=== PATIENT | female | born 1985 | race Caucasian/White ===

== ENCOUNTER 2016-11-08 13:42 | Outpatient (CLI) | payer MEDICAID ==
[2017-01-04] MEDS ORDERED: PRENATAL VIT1 TAB PO (11:14)
[2017-01-04] MEDS ORDERED: MOTRIN-DPS800 MG PO (11:15)
[2017-01-04] MEDS ORDERED: OXY IR DPS5 MG PO (11:15)
[2017-01-04] MEDS ORDERED: NIPPLECREAM TP (11:15)
[2017-01-04] MEDS ORDERED: COLACE-DPS100 MG PO (11:15)
[2017-01-04] MEDS ORDERED: IRON325 M1 PO (11:15)
[2017-01-04] MEDS ORDERED: MIRALAX PACKET17 GM PO (11:16)
[2017-01-04] MEDS ORDERED: MILK OF MAGNESI10 ML PO (11:16)
== END 2016-11-08 16:40 | disposition home or self-care (01) ==
LOC: 2LDRP 13:42 → BC 13:42
DX: O47.03 False labor before 37 completed weeks of gestation, third trimester (principal); Z3A.31 31 weeks gestation of pregnancy

== ENCOUNTER 2016-12-17 18:15 | Outpatient (CLI) | payer MEDICAID ==
[2017-01-04] MEDS ORDERED: PRENATAL VIT1 TAB PO (11:14)
[2017-01-04] MEDS ORDERED: NIPPLECREAM TP (11:15)
[2017-01-04] MEDS ORDERED: COLACE-DPS100 MG PO (11:15)
[2017-01-04] MEDS ORDERED: IRON325 M1 PO (11:15)
[2017-01-04] MEDS ORDERED: OXY IR DPS5 MG PO (11:15)
[2017-01-04] MEDS ORDERED: MOTRIN-DPS800 MG PO (11:15)
[2017-01-04] MEDS ORDERED: MILK OF MAGNESI10 ML PO (11:16)
[2017-01-04] MEDS ORDERED: MIRALAX PACKET17 GM PO (11:16)
== END 2016-12-17 21:30 | disposition home or self-care (01) ==
LOC: BC 18:15 → 2LDRP 18:15 → EDSTATUS 18:26 → BC 21:30
DX: O9A.213 Injury, poisoning and certain other consequences of external causes complicating pregnancy, third trimester (principal); Z3A.39 39 weeks gestation of pregnancy; W19.XXXA Unspecified fall, initial encounter

== ENCOUNTER 2017-01-01 22:45 | Inpatient (IN) | payer MEDICAID ==
[~2017-01-01] VITALS: Ht 152.4 cm; Wt 62.1 kg
--- NOTE | ~2017-01-01 | FD ---
ADMIT: 01/02/2017 RM/LOC: 220 [facility] MR#: [id number] 2620 [facility] [address] [place] [id number] LAVERNE PIERRE A [address] [id number] Final Diagnosis SEX: F AGE: 31 : 1985 ADMISSION DATE: 01/02/2017 DISCHARGE DATE: 01/03/2017 FINAL DIAGNOSIS: 1. Status post spontaneous vaginal delivery at term. 2. Hypothyroidism. PROCEDURE: 01/02/2017 spontaneous vaginal delivery with delivery of viable female, 6 pounds 5 ounces, Apgars 9 and 9. Deb Cruz MD/ meredith JOB #: [id number] CC: Deb Cruz MD, Attending Physician Deb Cruz MD, Family Physician
[2017-01-04] MEDS ORDERED: PRENATAL VIT1 TAB PO (11:14)
[2017-01-04] MEDS ORDERED: COLACE-DPS100 MG PO (11:15)
[2017-01-04] MEDS ORDERED: MOTRIN-DPS800 MG PO (11:15)
[2017-01-04] MEDS ORDERED: IRON325 M1 PO (11:15)
[2017-01-04] MEDS ORDERED: OXY IR DPS5 MG PO (11:15)
[2017-01-04] MEDS ORDERED: NIPPLECREAM TP (11:15)
[2017-01-04] MEDS ORDERED: MIRALAX PACKET17 GM PO (11:16)
[2017-01-04] MEDS ORDERED: MILK OF MAGNESI10 ML PO (11:16)
--- NOTE | 2017-02-03 08:42 | OR ---
ADMIT: 01/02/2017 RM/LOC: 220 [facility] MR#: [id number] [address] [facility] [address] [place], [place] [id number] CLAUDINE RHOADESARDLAVERNE Wright [address] [facility] [address] [place] [address] Operative/Delivery Room Report SEX: F AGE: 31 : 1985 SURGERY DATE: 01/02/2017 SURGEON: Andrew John MD PRINCIPAL DIAGNOSES: 1. Term intrauterine . 2. was complicated by hypothyroidism. INDICATION: The patient is a 31-year-old female, 2, para 1-0- 0-1, who presented at 39-1/2 weeks' estimated gestational age in active labor progressed through labor in a satisfactory fashion to complete. ANESTHESIA: Subcu Nubain. ESTIMATED BLOOD LOSS: 250 mL. COMPLICATIONS: None. FINDINGS: Viable female infant, 6 pounds 5 ounces with scores of 9 at 1 and 9 at 5 minutes, delivered in left occiput anterior presentation. DESCRIPTION OF PROCEDURE: When the patient was noted to be complete and pushing, she was prepped and draped in the usual fashion in dorsal lithotomy position. 's head was allowed to deliver over an intact perineum. After restitution of the head, the neck was examined for nuchal cord and none was noted. The anterior followed by the posterior shoulders were delivered followed by expulsion of the remainder of the . Cord was clamped x2, cut, and the was placed on the maternal stomach in the care of nursing staff. Placenta was then delivered after approximately 30 minutes, intact. Uterine cervix was then visualized and noted to be without lacerations or tears. Attention was then turned to the perineum where the patient was noted to have no significant perineal lacerations. The patient tolerated the procedure well, was taken to the recovery room in stable condition. All sponge, instrument, and needle counts were correct. Andrew John MD/ giovanna JOB #: [id number] CC: Deb Cruz, Attending Physician Deb Cruz, Family Physician
--- NOTE | 2017-03-03 09:37 | HP ---
ADMIT: 01/02/2017 RM/LOC: 220 [facility] MR#: [id number] [address] [facility] [address] [place], [place] [address] LAVERNE PIERRE A [address] [facility] [address] [place] [address] Pre-OP History and Physical SEX: F AGE: 31 : 1985 DATE OF SERVICE: PRINCIPAL DIAGNOSIS: Term intrauterine . HISTORY OF PRESENT ILLNESS: The patient is a 31-year-old female, 2, para 1, who presented at 39 and 1/2 weeks estimated gestational age in active labor with complaint of uterine contractions. PREVIOUS MEDICAL HISTORY: The patient's medical history was significant for hypothyroidism. SOCIAL HISTORY: She denies smoking, alcohol, or drug use. FAMILY HISTORY: Significant for diabetes. ALLERGIES: SHE HAS NO KNOWN MEDICAL ALLERGIES. MEDICATIONS: She takes Synthroid 75 mcg daily, hydrocodone, acetaminophen 5/325 one as needed p.r.n. pain. PHYSICAL EXAMINATION: GENERAL: The patient is a well-developed, well- nourished female, alert and oriented, in no apparent distress with normal stream of thought and content of speech. HEART: Regular rate and rhythm without murmurs, rubs, or gallops. LUNGS: Clear to auscultation bilaterally. ABDOMEN: Soft with positive bowel sounds. heart tones on presentation were in the 120s with moderate variability and accelerations present. The patient was having regular uterine contractions. ASSESSMENT: Term intrauterine in active labor. We will admit the patient and anticipate spontaneous vaginal delivery. Andrew John MD/ giovanna JOB #: [id number] CC: Andrew John MD, Attending Physician Deb Cruz MD, Family Physician
== END 2017-01-03 19:40 | disposition home or self-care (01) | DRG 774 ==
LOC: 2LDRP 22:45 → BC 22:45 → 2LDRP 01-02 01:46 → BC 01-05 08:00
PROVIDERS: ADMIT Obstetrics & Gynecology
PROC: 10E0XZZ Delivery of Products of Conception, External Approach (ICD-10-PCS; principal; 2017-01-02)
DX: O99.824 Streptococcus B carrier state complicating childbirth (principal); O72.1 Other immediate postpartum hemorrhage; E03.9 Hypothyroidism, unspecified; O99.284 Endocrine, nutritional and metabolic diseases complicating childbirth; Z3A.39 39 weeks gestation of pregnancy; Z37.0 Single live birth

== ENCOUNTER 2017-01-05 20:43 | Emergency (ER) | payer MEDICAID ==
[~2017-01-05 20:43] MED LIST: COLACE-DPS100 MG PO; IRON325 M1 PO; MILK OF MAGNESI10 ML PO; MIRALAX PACKET17 GM PO; MOTRIN-DPS800 MG PO; NIPPLECREAM TP; OXY IR DPS5 MG PO; PRENATAL VIT1 TAB PO
--- NOTE | 2017-02-02 16:41 | ER ---
ADMIT: 01/05/2017 RM/LOC: ER [facility] MR#: [id number] [address] [facility] [address] [place], [place] [id number] ZAYDA PIERRERUTH Lozano [address] [facility] [address] [place] [address] Emergency Room Report SEX: F AGE: 31 : 1985 DATE: 01/05/2017 SUBJECTIVE: This patient comes to the ER because she is having a hemorrhoid that she has had for one day. She recently had a vaginal delivery 3 days , and she is having quite a bit of pain in her rectum. On physical exam, she has several large thrombosed hemorrhoids that are quite tender. I infiltrated the areas with lidocaine and expressed several large blood clots. I wrote a prescription for Anusol-HC. We will have her follow up with her primary as needed. DIAGNOSIS: Thrombosed hemorrhoids. LIVAN Bravo / Pablo Briggs MD / virgenl JOB #: [id number] CC: Pablo Briggs MD, Attending Physician Deb Cruz MD, Family Physician
== END 2017-01-05 21:42 | disposition home or self-care (01) ==
LOC: ER 20:43
DX: K64.5 Perianal venous thrombosis (principal); Z79.899 Other long term (current) drug therapy

== ENCOUNTER 2017-01-10 08:17 | Day surgery (SDC) | payer MEDICAID ==
[~2017-01-10] VITALS: Ht 162.6 cm; Wt 55.5 kg
--- NOTE | 2017-01-19 19:20 | OR ---
ADMIT: 01/10/2017 RM/LOC: [facility] MR#: [id number] 2620 [facility] [address] [place], [place] [phone] CHOWRA BETANCOURTLAVERNE [address] [facility] [address] [place] [address] Operative/Delivery Room Report SEX: F AGE: 31 : 1985 SURGERY DATE: 01/10/2017 SURGEON: Wilmer Anguiano MD PREOPERATIVE DIAGNOSIS: Grade 4 thrombosed internal external hemorrhoids on the left side, grade 2 on the right. PROCEDURES: Excision of 3 different columns of external internal tissue, mostly involving the left side and one on the right side. ANESTHESIA: Spinal anesthesia with sedation. I did an infiltrate with local anesthetic. INDICATION FOR PROCEDURE: Please see my H and P. SPECIMEN: I did send the specimens. BLOOD LOSS: 10 mL. DESCRIPTION OF PROCEDURE: After the risks, benefits, possible complications, and the alternatives had been explained, and informed consent had been obtained, the patient was taken back to the operating room, underwent spinal anesthesia and sedation. Surgical field was prepped and draped in a sterile manner. She has a thrombosed fairly significant grade 4 left-sided hemorrhoids and then a grade 2 right-sided hemorrhoid. Unfortunately, the external skin is involving most of this external skin around here, and so there was just no way to do anything other than get rid of this kind of right at the anoderm using electrocautery and then used the Harmonic Scalpel hand piece to slowly take this basically the whole left side and maintained very good hemostasis with that, did not have much bleeding at all. I did place a stitch at the apex of this, even though there was not any bleeding there. Then, there was a little spot up around the 12 o'clock position. I took a little extra skin and then on her right side, there was a kind of a grade 2 internal hemorrhoid that I excised as well using Harmonic Scalpel. Once this was done, I had already injected prior to starting local anesthetic, a mixture from pharmacy that includes ropivacaine 0.5%, I believe, and whatever else they can cogged into it. Once that was done, the procedure was terminated. She tolerated it well and was taken to recovery room stable and satisfactory condition. Wilmer Anguiano MD/ giovanna JOB #: [id number] CC: Wilmer Anguiano, Attending Physician NO FAMILY PHYSICIAN, Family Physician
== END 2017-01-10 17:59 | disposition home or self-care (01) ==
LOC: SSS 08:17
PROC: 06BY0ZC Excision of Hemorrhoidal Plexus, Open Approach (ICD-10-PCS; principal; 2017-01-10)
DX: K64.3 Fourth degree hemorrhoids (principal); K21.9 Gastro-esophageal reflux disease without esophagitis; E03.9 Hypothyroidism, unspecified; Z98.890 Other specified postprocedural states